=== PATIENT | male | born 1990 | race Caucasian/White ===

== ENCOUNTER 2024-07-29 14:55 | Emergency (ER) | payer MEDICAID, SELFPAY ==
[2024-07-29 15:04] VITALS: BP 126/85; PULSE 96; RESP 18; TEMP 37.2; O2SAT 99
--- NOTE | 2024-07-29 15:40 | ED.GENADULT ---
HPI - General Adult General Chief complaint: Skin/Abscess/Foreign Body Stated complaint: Left arm thinks spider bite Time Seen by Provider: 07/29/24 15:08 Source: patient, RN notes reviewed and old records reviewed Mode of arrival: ambulatory Limitations: no limitations History of Present Illness HPI narrative: 34-year-old white male to Express Care with complaint of spider bite to to left dorsal forearm for 4 days. Patient endorses history of meningitis. Patient appears in very tired, dozing off in exam room. Right sabianism excoriation agrawal and lesions across bilateral forearms. Patient denies IV drug use, nausea, vomiting, headache, fever, chills, body aches. Patient able to tolerate fluids by mouth. Respirations even and nonlabored. Patient in no acute distress. Related Data Home Medications Medication Instructions Recorded Confirmed No Home Medications 07/29/24 07/29/24 Allergies Allergy/AdvReac Type Severity Reaction Status Date / Time amoxicillin Allergy Hives Verified 07/29/24 15:17 Review of Systems Review of Systems: All systems reviewed & are unremarkable except as noted in HPI and below Constitutional: Constitutional: Reports as per HPI, Denies body ache(s), Denies chills, Denies fever(s), Denies headache(s) and Denies malaise Eyes: Eyes: Reports no additional eye complaints ENT: Reports system reviewed and no additional complaints, except as documented Cardiovascular: Cardiovascular: Reports no additional cardiovascular complaints, Denies chest pain and Denies dyspnea Respiratory: Respiratory: Reports no additional respiratory complaints, Denies cough and Denies dyspnea Musculoskeletal: Musculoskeletal: Reports no additional musculoskeletal complaints Integumentary/Breasts: Skin/Breast: Reports as per HPI, Reports new lesions, Reports erythema and Reports skin swelling Neurologic: Reports system reviewed and no additional complaints, except as documented Psychiatric: Psychiatric: Reports no additional psychiatric complaints PMFSH Comments At the time of my signature, I reviewed and agree with the nursing past medical, surgical, social, and family history. There is no relevant family history pertinent to the patient complaint. Exam Const: General: cooperative, no acute distress, poor hygiene, tired appearing, well nourished and thin Nutritional Appearance: well nourished Orientation/consciousness: patient oriented x3 Limitations: no limitations HENMT: Head: normal to inspection Ears: external ears normal Face/Nose/Sinus: Normal external nose present, Normal nares present, normal facial exam, No erythema and No edema Face and sinus: normal facial exam, no erythema and no edema Mouth: Yes Normal oral and palatal mucosa present Eyes: General: appearance normal, both eyes and all related structures Neck: Neck: normal visual inspection, full ROM and no meningeal signs Lymphatic: no lymphadenopathy noted and no lymphedema noted Chest: Chest palpation & inspection: normal inspection of the chest Resp: Effort & Inspection: normal respiratory effort and able to speak in complete sentences Cardio: Jugular venous distension: no JVD Rate: regular rate Rhythm: regular rhythm Back/Spine/Pelvis: Cervical Spine: cervical ROM normal Skin: General skin exam: crusts, erythema, excoriation, scars, lesion and wounds noted ( 3 cm for erythematous, edematous lesion to left dorsal forearm) Neuro: General: patient oriented x3, gait normal, moves all extremities and no meningeal signs Speech: normal speech Gait exam (Neuro): Normal gait present Extrem: General: full ROM and capillary refill normal Psych: Appearance: grossly normal and well kempt Course Course Emergency Course: Some parts of this dictation were generated by voice recognition software and may contain typographical and/or grammatical inaccuracies. Level of Care: Express Care Visit Vital Signs Vital signs: Vital Signs [place]
== END 2024-07-29 15:45 | disposition short-term general hospital (02) ==
PROVIDERS: Emergency Provider Nurse Practitioner Family
DX: L03.114 Cellulitis of left upper limb (principal); Z86.61 Personal history of infections of the central nervous system
CPT/HCPCS: 99212; G0463

== ENCOUNTER 2025-01-25 14:30 | Emergency (ER) | payer OTHER, SELFPAY ==
--- NOTE | 2025-01-25 14:39 | ED_ITS ---
HPI - Skin/Abscess/Foreign Bdy General Chief complaint: Skin/Abscess/Foreign Body Stated complaint: HARD BUMPS ON LEFT LEG Time Seen by Provider: 01/25/25 15:05 Source: patient and RN notes reviewed Mode of arrival: ambulatory Limitations: no limitations History of Present Illness HPI narrative: 34-year-old male presents with concern for bumps to his legs. He reports he was treated for folliculitis about a month ago and it went away but there still red spots on his legs. He denies any tender areas. He denies any drainage. MD complaint: rash Related Data Allergies Allergy/AdvReac Type Severity Reaction Status Date / Time amoxicillin Allergy Hives Verified 01/25/25 14:58 Review of Systems Review of Systems: CONSTITUTIONAL: Denies malaise, chills, sweats, or fever. CARDIOVASCULAR: Denies chest pain, palpitations, or edema. RESPIRATORY: Denies cough or dyspnea. GASTROINTESTINAL: Denies abdominal pain, nausea, vomiting SKIN: Reports hard bumps on bilateral legs and arms MUSCULOSKELETAL: Denies joint pain or myalgia. NEUROLOGIC: Denies headache. All systems reviewed & are unremarkable except as noted in HPI and below PMFSH Comments At time of signature, agree with nursing past medical, surgical, social and family history. There is no relevant family history pertinent to the presenting complaint Exam Narrative: GENERAL: Well-appearing, well-nourished, and in no acute distress. HEAD: Normocephalic, atraumatic. EYES: PERRLA, conjunctivae clear, and EOMI. ENT: Mucous membranes moist. Oropharynx without edema, erythema or lesions. NECK: Supple. No lymphadenopathy CHEST: Clear to auscultation. No respiratory distress. HEART: Regular rate and rhythm. SKIN: Warm, dry. Discrete healed papules noted to bilateral legs and arms, no active infection NEURO: Alert and oriented x3. PSYCH: Normal mood and affect Course Course Emergency Course: Patient is aware of diagnosis, understands and agrees to treatment plan. Anticipatory guidance given. Patient agrees to follow-up as directed and is aware of reasons to seek care at the emergency department. Portions of this record may have been created with voice recognition software Level of Care: Express Care Visit Vital Signs Vital signs: Reviewed. MDM - Skin/Abscess/Foreign Bdy MDM Narrative Medical decision making narrative: Does not appear at this time to be erythema multiforme, bullous, SJS, TEN; no evidence at this time to suggest RMSF, endocarditis or Lyme disease; patient looks well, nontoxic and is tolerating oral intake; no neurologic signs or symptoms; no headache, photophobia or neck pain; afebrile; appropriate for initial outpatient treatment; discussed the importance of follow-up, patient agrees; question, viral exanthema, contact dermatitis, allergic dermatitis, eczema, urticaria, folliculitis, cellulitis, impetigo. No soft palate or uvula edema, no tongue, lip edema or other mucosal involvement, no respiratory compromise, no stridor, no wheezing, no wheezing, no history of syncope, no hypotension, no nausea, vomiting, or diarrhea. Instructed patient to go to nearest ER immediately for any worsening symptoms including but not limited to: fever, spreading rash, pain, sore throat, headache, dizziness, chest pain, trouble breathing, or any symptoms concerning to the patient. Critical Care Time Critical Care Time Critical Care Time: No Discharge Plan Discharge Clinical Impression: History of folliculitis Patient Disposition: Home, Self-Care Condition: Stable Instructions: Folliculitis (ED) Additional Instructions: Use Hibiclens as directed. After that Several times a week use antibacterial soap with a loofah specially in here areas. Wash all your sheets thoroughly. Follow-up with your doctor if you have any further concerns. Patient Language: Mongolian Prescriptions: New chlorhexidine gluconate [Hibiclens] 4 % liquid 1 applic topical ONCE Qty: 236 1RF Rx Instructions: as a single dose Follow-up/Referrals: Grady,Macario Beavers MD [Primary Care Provider] - Time of Disposition: 15:11
[2025-01-25 14:50] VITALS: BP 129/88; PULSE 90; RESP 20; TEMP 36.7; O2SAT 94
--- OUTSIDE RECORDS SUMMARY | 2025-01-25 17:01 | XMS_ITS | Referral Summary ---
Author Organization [facility] Address [address] [place] [address] Care Team Providers Care County Historian Name Role Phone No, Physician Primary Care Provider [phone] Allergies Active Allergy Reactions Criticality Noted Date Comments Amoxicillin Rash Medium 07/30/2024 Medications mupirocin (BACTROBAN) 2 % ointment Apply to each nostril 2 (two) times a day 22 g 07/30/2024 Active Immunizations Immunization Administration Dates Next Due DTP 09/27/1995, 3,1991,1991,0 1991 Hep A, Pediatric 01/30/2007 Hep B, Adolescent or Pediatric 12/31/2002,2001,07/29/2002 HiB 04/06/1993,1991,1991 ,1991 IPV 09/27/1995, 3,1991,1991,0 1991 MMR 05/15/1996,04/06/1993 Meningococcal C Conjugate 07/29/2007 Td, adsorbed 03/02/2014 Tdap 04/16/2024,12/09/2016,03/13/2014 ,10/08/2006 Social History Tobacco Use Types Packs/Day Years Used Date Smoking Tobacco: Every Day Smokeless Tobacco: Never Personal Safety Answer Date Recorded Have you ever been in or are you currently in a harmful physical or emotional relationship or is someone making you feel afraid or unsafe? 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 Gender Identity Not on file Sexual Orientation Not on file Last Filed Vital Signs Vital Sign Reading Time Taken Comments Blood Pressure 114/82 07/30/2024 5:29 AM CDT Pulse 102 07/30/2024 5:29 AM CDT Temperature 37.2 C (99 F) 07/30/2024 5:29 AM CDT Respiratory Rate 18 07/30/2024 5:29 AM CDT Oxygen Saturation 100% 07/30/2024 5:29 AM CDT Inhaled Oxygen Concentration - - Weight 68 kg (150 lb) 07/30/2024 5:29 AM CDT Height 182.9 cm (6') 07/30/2024 5:29 AM CDT Body Mass Index 20.34 07/30/2024 5:29 AM CDT Plan of Treatment Not on file Insurance IDPA Care Teams County Historian Relationship Specialty Start Date End Date No, Physician PCP - General 07/12/17
--- OUTSIDE RECORDS SUMMARY | 2025-01-25 17:01 | XMS_ITS | Clinical Summary ---
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 Gender Identity Not on file Sexual Orientation Not on file Obstetrics History Last Filed Vital Signs Vital Sign Reading [...] 07/30/2024 5:29 AM CDT Plan of Treatment Health Maintenance Due Date Last Done Comments Depression Screening 1991 Hepatitis C Screening 1991 Varicella Vaccines (1 of 2 - 13+ 2-dose series) 2004 Regular Well Visit/Exam 18-64 2009 Pneumococcal vaccine <65 (1 of 2 - PCV) 2010 Influenza Vaccine (#1) 2024 DTaP/Tdap/Td Vaccine (11 - Td or Tdap) 04/16/2034 04/16/2024, 12/09/2016, 03/13/2014, Additional history exists Hepatitis B Screening Completed 12/31/2002 , 08/31/2002, 07/29/2002 HPV Vaccines Aged Out No longer eligi ble based on patient's age to complete this topic Insurance IDPA Care Teams Programming Intern Relationship Specialty Start Date End Date No, Physician PCP - General 07/12/17
--- OUTSIDE RECORDS SUMMARY | 2025-01-25 17:01 | XMS_ITS | Clinical Summary ---
Author Organization [facility] Address [address] [place] [address] Phone Care Team Providers Care Circuit Breaker Mechanic Name Role Phone Provider, None Primary Care Provider Unavailabl e Allergies Active Allergy Reactions Criticality Noted Date Comments Amoxicillin Unknown Medications HYDROcodone-zoë taminophen (NORCO) 5-325 MG Tablet Take 1-2 Tabs by mouth every 4 hours as needed for Pain. 20 Tab 0 7 Active Additional Information Patient not taking.Reported on 08/02/2022 Active Problems No known active problems Encounters Date Type Department Care Team Description 11/30/2024 10:17 AM SHELTER SUPERVISOR - 11/30/2024 12:27 PM SHELTER SUPERVISOR Emergency [facility] [address] [place] [address] Beronica Osuna, DATA BASE ADMINISTRATOR, ENGRAVER WOOD Cellulitis of lip Discharge Disposition: Discharged to home or Selfcare 11/30/2024 Travel from Last 3 Months Immunizations Immunization Administration Dates Next Due TD VACCINE 03/02/2014 TDAP Vaccine 04/16/2024,12/09/2016 Social History Tobacco Use Types Packs/Day Years Used Date Smoking Tobacco: Former Cigarettes Smokeless Tobacco: Never Alcohol Use Standard Drinks/Week Comments Yes 0 (1 standard drink = 0.6 oz pur e alcohol) Sex and Gender Information Value Date Recorded Sex Assigned at Not on file Legal Sex Male 11:23 PM CDT Gender Identity Not on file Sexual Orientation Not on file Last Filed Vital Signs Vital Sign Reading Time Taken Comments Blood Pressure 128/72 11/30/2024 12:25 PM SHELTER SUPERVISOR Pulse 74 11/30/2024 12:25 PM SHELTER SUPERVISOR Temperature 36.1 C (96.9 F) 11/30/2024 10:14 AM SHELTER SUPERVISOR Respiratory Rate 16 11/30/2024 12:25 PM SHELTER SUPERVISOR Oxygen Saturation 96% 11/30/2024 12:25 PM SHELTER SUPERVISOR Inhaled Oxygen Concentration - - Weight 67.1 kg (148 lb) 11/30/2024 10:14 AM SHELTER SUPERVISOR Height 182.9 cm (6') 11/30/2024 10:14 AM SHELTER SUPERVISOR Body Mass Index 20.07 11/30/2024 10:14 AM SHELTER SUPERVISOR Plan of Treatment Health Maintenance Due Date Last Done Comments Hepatitis C Virus (HCV) Screening 1991 Influenza Immunization (#1) 2024 SARS-COV-2 Immunization ( season) 2024 Td Immunization Every 10 Years (Adults With 1 Tdap) 04/16/2034 04/16/2024, 12/09/2016, 03/13/2014, Additional history exists Respiratory Syncytial Virus (RSV) Immunization (Adult) (1 - 1-dose 75+ series) 2066 Hepatitis B Immunization Completed 003, 08/31/2002, 07/29/2002 DTaP/Tdap/Td Immunization Discontinued 2023, 12/09/2016, 03/13/2014, Additional history exists Meningococcal Immunization (ACWY) Aged Out No longer eligible based on patient's age to complete this topic Pneumococcal Immunization Combined Aged Out No longer eligible based on patient's age to complete this topic Rotavirus Immunization Aged Out No lo nger eligible based on patient's age to complete this topic Procedures Procedure Name Priority Date/Time Associated Diagnosis Comments XR FINGER(S) MIN 2 VIEWS RT STAT 11/30/2024 11:06 AM SHELTER SUPERVISOR SPLINT APPLICATION Routine 11/30/2024 10 :33 AM SHELTER SUPERVISOR from Last 3 Months Results * XR FINGER(S) MIN 2 VIEWS RT (11/30/2024 11:06 AM SHELTER SUPERVISOR) Anatomical Region Laterality Modality UPPER EXTREMITY, Fingers N/A Digital Radiography 11/30/2024 11:3 8 AM SHELTER SUPERVISOR Impressions 11/30/2024 11:40 AM SHELTER SUPERVISOR IMPRESSION: 1. Minimally displaced comminuted fracture of the tuft of the 2nd distal phalanx. Narrative 11/30/2024 11:40 AM SHELTER SUPERVISOR EXAM DESCRIPTION: XR FINGER(S) MIN 2 VIEWS RT REASON FOR STUDY: right 2nd finger injury-laceration to right pointer finger. Patient states last night he got his finger caught in a bike sprocket. TECHNIQUE: 3 radiographic view(s) of the right 2nd digit . COMPARISON: None FINDINGS: Minimally displaced comminuted fracture of the tuft of the 2nd distal phalanx. No gross extension to the joint space. No other fracture seen. Bandage material obscures soft tissue detail. Mild soft tissue swelling. Old appearing nonunited ulnar styloid fracture. THIS IS AN ELECTRONICALLY VERIFIED FINAL REPORT 11/30/2024 11:38 AM - Electronically signed by Lorenzo Calabrese M.D. AG: ABBY Report ID: [id number] Reading Location: [id number] Procedure Note Lorenzo Calabrese MD - 11/30/2024 EXAM DESCRIPTION: XR FINGER(S) MIN 2 VIEWS RT REASON FOR STUDY: right 2nd finger injury-laceration to right pointer finger. Patient states last night he got his finger caught in a bike sprocket. TECHNIQUE: 3 radiographic view(s) of the right 2nd digit . COMPARISON: None FINDINGS: Minimally displaced comminuted fracture of the tuft of the 2nd distal phalanx. No gross extension to the joint space. No other fracture seen. Bandage material obscures soft tissue detail. Mild soft tissue swelling. Old appearing nonunited ulnar styloid fracture. THIS IS AN ELECTRONICALLY VERIFIED FINAL REPORT 11/30/2024 11:38 AM - Electronically signed by Lorenzo Calabrese M.D. AG: ABBY Report ID: [id number] Reading Location: [id number] IMPRESSION: 1. Minimally displaced comminuted fracture of the tuft of the 2nd distal phalanx. us Beronica Osuna APRN, CNP IMG DIAGNOSTIC ORDERA BLES Final Result * Splint Application (11/30/2024 10:33 AM SHELTER SUPERVISOR) Narrative Negro Curiel MD - 11/30/2024 10:33 AM SHELTER SUPERVISOR Beronica Osuna APRN, CNP 11/30/2024 11:56 AM Splint Application Performed by: Beronica Osuna APRN, CNP Authorized by: Beronica Osuna APRN, CNP Consent: Consent obtained: Verbal Consent given by: Patient Risks, benefits, and alternatives were discussed: yes Risks discussed: Discoloration, numbness, pain and swelling Alternatives discussed: No treatment, delayed treatment and referral [place] protocol: Procedure explained and questions answered to patient or proxy's satisfaction: yes Imaging studies available: yes Patient identity confirmed: Verbally with patient and arm band Pre-procedure details: Distal neurologic exam: Normal Distal perfusion: distal pulses strong and brisk capillary refill Procedure details: Location: Finger Finger location: R index finger Cast type: Finger Splint type: Finger Supplies: Aluminum splint Post-procedure details: Distal neurologic exam: Normal Distal perfusion: distal pulses strong and brisk capillary refill Procedure completion: Tolerated well, no immediate complications us Beronica Osuna APRN, CNP PROCEDURE/MINOR SURGI ISABELLE ORDERABLES Final Result from Last 3 Months Insurance MEDICAID [place] Care Teams Circuit Breaker Mechanic Relationship Specialty Start Date End Date Provider, None [place] PCP - General 08/02/22
== END 2025-01-25 15:19 | disposition home or self-care (01) ==
PROVIDERS: Emergency Provider Nurse Practitioner; PCP Internal Medicine
DX: L73.9 Follicular disorder, unspecified (principal)
CPT/HCPCS: 99213; G0463

== ENCOUNTER 2025-05-29 08:41 | Emergency (ER) | payer OTHER, SELFPAY ==
--- NOTE | 2025-05-29 09:19 | ED_ITS ---
HPI - Skin/Abscess/Foreign Bdy General Chief complaint: Skin/Abscess/Foreign Body Stated complaint: possible spider bite on nose Patient presents to Express Care with complaints of redness, swelling, fatigue, to nose. Patient reports he believes this is a spider bite. Patient does note that this comes and goes and has been happening for about a year. Patient has questions about MRSA. Denies fever, chills, body aches, headache, dizziness, or drainage from the area. Related Data Allergies Allergy/AdvReac Type Severity Reaction Status Date / Time amoxicillin Allergy Hives Verified 01/25/25 14:58 Review of Systems Constitutional: Constitutional: Reports as per HPI, Denies chills, Reports fatigue, Denies fever(s) and Denies weakness Eyes: Eyes: Reports no additional eye complaints ENT: Reports as per HPI, Denies dysphagia, Denies vertigo, Denies dizziness, Denies epistaxis, Denies nasal congestion and Denies sore throat Comments: No swelling, redness, pain to nose. Cardiovascular: Cardiovascular: Reports no additional cardiovascular complaints Respiratory: Respiratory: Reports no additional respiratory complaints Gastrointestinal: Gastrointestinal: Reports no additional gastrointestinal complaints Genitourinary: Genitourinary: Reports no additional male genitourinary complaints Musculoskeletal: Musculoskeletal: Reports no additional musculoskeletal complaints Integumentary/Breasts: Skin/Breast: Reports as per HPI, Denies breast pain, Denies breast mass, Denies pruritus, Reports erythema, Denies rash and Reports skin ulcer Neurologic: Reports system reviewed and no additional complaints, except as documented Psychiatric: Psychiatric: Reports no additional psychiatric complaints Endocrine: Endocrine: Reports no additional endocrine complaints Hematologic/Lymphatic: Hematologic/Lymphatic: Reports no additional hematologic/lymphatic complaints Allergic/Immunologic: Allergic/Immunologic: Reports no additional allergic/immunologic complaints Exam Const: General: healthy appearing, no acute distress and alert Nutritional Appearance: well nourished Orientation/consciousness: patient oriented x3 Limitations: no limitations HENMT: Face/Nose/Sinus: external nose not normal ( Diffuse erythema, ulcerations, and swelling noted) Face and sinus: abnormal facial exam and sinuses nontender Mouth: Yes Normal oral and palatal mucosa present Neck: Neck: no lymphadenopathy Resp: Effort & Inspection: normal respiratory effort Auscultation: clear to auscultation bilaterally Cardio: Rate: regular rate Rhythm: regular rhythm Heart sounds: no murmurs Skin: General skin exam: normal color Rashes: no rashes Wounds: wounds noted Other: diffuse open wounds over arms, face, and chest. Neuro: General: patient oriented x3 and moves all extremities Speech: normal speech Gait exam (Neuro): Normal gait present Extrem: General: normal to inspection, no clubbing, cyanosis or edema and no pedal edema Psych: Mental Status: mental status grossly normal Affect: normal affect Attitude: cooperative Course Course Level of Care: Express Care Visit MDM - Skin/Abscess/Foreign Bdy MDM Narrative Medical decision making narrative: Spoke with patient about prevention of MRSA and catching early infections. Discharge instructions reviewed with patient, as well as provided in writing per nursing staff. The instructions also include specific and strict return/GO TO THE ER as well as f/u information. All questions have been answered, and the patient deny any further questions with discharge and discharge plan. Differential Diagnosis Differential diagnosis: Likely abscess of skin or subcutaneous tissue, urticaria, cellulitis and impetigo Medical Records Attestation: I reviewed the patient's medical records. Discharge Plan Discharge Clinical Impression: Cellulitis Patient Disposition: Home Condition: Stable Instructions: Antibiotic Form, MRSA (Methicillin-Resistant Staphylococcus Aureus) (ED), Cellulitis (ED) Additional Instructions: Clean with soap and water only; Avoid using alcohol and peroxide. Elevate the affected area if possible Alternate Tylenol/ibuprofen for as needed for pain Acetaminophen(Tylenol) 650- 1000mg every 4-6hours with max of 4000mg/day. Nonsteroidal anti-inflammatory agent (NSAIDs-ibuprofen): 400mg every 4-6hours with max 2400mg/day Take antibiotic until it's gone. Please schedule a follow up visit with your personal physician for further evaluation and treatment within 3-5days OR if your symptoms persist, change or worsen significantly before you can contact your personal physician then please, without delay, go to the emergency department for further evaluation. Since you have had recurring infections you can use topical tea tree washes were chlorhexidine regularly for prevention of infection and flare-ups. Patient Language: Ethiopian Prescriptions: New clindamycin HCl [Cleocin HCl] 300 mg capsule 300 mg PO Q6H Qty: 40 0RF Follow-up/Referrals: Grady,Macario Beavers MD [Primary Care Provider] - Time of Disposition: 09:30
[2025-05-29 17:33] VITALS: BP 124/91; PULSE 107; RESP 16; TEMP 36.2; O2SAT 100
== END 2025-05-29 09:38 | disposition home or self-care (01) ==
PROVIDERS: Emergency Provider Nurse Practitioner Family; PCP Internal Medicine
DX: J34.0 Abscess, furuncle and carbuncle of nose (principal)
CPT/HCPCS: 99213; G0463

== ENCOUNTER 2025-09-28 18:33 | Emergency (ER) | payer OTHER, SELFPAY ==
--- OUTSIDE RECORDS SUMMARY | 2025-09-28 18:35 | XMS_ITS | Clinical Summary ---
Author Organization [facility] Address [address] [place] [address] Phone Care Team Providers Care Short Order Cook Name Role Phone Provider, None Primary Care Provider Unavailabl e Allergies Active Allergy Reactions Criticality Noted Date Comments Amoxicillin Unknown Medications HYDROcodone-zoë taminophen (NORCO) 5-325 MG Tablet Take 1-2 Tabs by mouth every 4 hours as needed for Pain. 20 Tab 0 7 Active Additional Information Patient not taking.Reported on 08/02/2022 Active Problems No known active problems Immunizations Immunization Administration Dates Next Due TD [...] Comments Blood Pressure 128/72 11/30/2024 12:25 PM CULTURAL HISTORIAN Pulse 74 11/30/2024 12:25 PM CULTURAL HISTORIAN Temperature 36.1 C (96.9 F) 11/30/2024 10:14 AM CULTURAL HISTORIAN Respiratory Rate 16 11/30/2024 12:25 PM CULTURAL HISTORIAN Oxygen Saturation 96% 11/30/2024 12:25 PM CULTURAL HISTORIAN Inhaled Oxygen Concentration - - Weight 67.1 kg (148 lb) 11/30/2024 10:14 AM CULTURAL HISTORIAN Height 182.9 cm (6') 11/30/2024 10:14 AM CULTURAL HISTORIAN Body Mass Index 20.07 11/30/2024 10:14 AM CULTURAL HISTORIAN Plan of Treatment Health Maintenance Due Date Last Done Comments Hepatitis C Virus (HCV) Screening 1991 Human Papillomavirus (HPV) Immunization (1 - 3-dose SCDM series) 2018 Influenza Immunization (#1) 2025 SARS-COV-2 Immunization ( season) 2025 Td Immunization Every 10 Years (Adults With [...] patient's age to complete this topic Insurance MEDICAID [place] Care Teams Short Order Cook Relationship Specialty Start Date End Date Provider, None [place] PCP - General 08/02/22
--- OUTSIDE RECORDS SUMMARY | 2025-09-28 18:35 | XMS_ITS | Clinical Summary ---
Author Organization [facility] Address [address] [place] [address] Care Team Providers Care Maternity Nurse Name Role Phone No, Physician Primary Care Provider [phone] Allergies Active Allergy Reactions Criticality Noted Date Comments Amoxicillin Rash Medium 07/30/2024 Medications mupirocin (BACTROBAN) 2 % ointment Apply to each nostril 2 (two) times a day 22 g 07/30/2024 Active cephalexin (KEFLEX) 500 mg capsule Take 1 capsule (500 mg total) by mouth 3 (three) times a day 21 capsule 07/16/2025 Active Encounters Date Type Department Care Team Description 07/16/2025 4:40 AM CDT - 07/16/2025 7:10 AM CDT Emergency [facility] Emergency Department [address] [place] [address] Fredy Bedoya MD Kanumuri, Raghu, MD Facial laceration, initial encounter (Primary Dx); Blurry vision, left eye Discharge Disposition: Discharge to home or self care from Last 3 Months Immunizations Immunization Administration Dates Next Due DTP 09/27/1995, 3,1991,1991,0 1991 Hep A, Pediatric 01/30/2007 Hep B, Adolescent or Pediatric 12/31/2002,2001,07/29/2002 HiB 04/06/1993,1991,1991 ,1991 IPV 09/27/1995, 3,1991,1991,0 1991 MMR 05/15/1996,04/06/1993 Meningococcal C Conjugate 07/29/2007 Td, adsorbed 03/02/2014 Tdap 07/16/2025,,12/09/2016,03/13/2014,1 12/08/2005 Social History Tobacco Use Types Packs/Day Years Used Date Smoking Tobacco: Every Day Smokeless Tobacco: Never Personal Safety Answer Date Recorded Have you ever been in or are you currently in a harmful physical or emotional relationship or is someone making you feel afraid or unsafe? 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 Gender Identity Not on file Sexual Orientation Not on file Obstetrics History Last Filed Vital Signs Vital Sign Reading Time Taken Comments Blood Pressure 124/72 07/16/2025 7:08 AM CDT Pulse 83 07/16/2025 7:08 AM CDT Temperature 36.2 C (97.1 F) 07/16/2025 12:11 AM CDT Respiratory Rate 16 07/16/2025 7:08 AM CDT Oxygen Saturation 98% 07/16/2025 7:08 AM CDT Inhaled Oxygen Concentration - - Weight 73.9 kg (163 lb) 07/16/2025 12:08 AM CDT Height 182.9 cm (6') 07/16/2025 12:08 AM CDT Body Mass Index 22.11 07/16/2025 12:08 AM CDT Plan of Treatment Health Maintenance Due Date Last Done Comments Depression Screening 1991 Hepatitis C Screening 1991 Varicella Vaccines (1 of 2 - 13+ 2-dose series) 2004 Regular Well Visit/Exam 18-64 2009 Pneumococcal vaccine <65 (1 of 2 - PCV) 2010 HPV Vaccines (1 - 3-dose SCD M series) 2018 Influenza Vaccine (#1) 2025 DTaP/Tdap/Td Vaccine (12 - T d or Tdap) 07/16/2035 07/16/2025, 04/16/2024, 12/09/2016, Additional history exists Hepatitis B Screening Completed 12/31/2002 , 08/31/2002, 07/29/2002 Procedures Procedure Name Priority Date/Time Associated Diagnosis Comments CT FACIAL BONES WO CONTRAST ED 07/16/2025 5:[address] HEAD WO CONTRAST ED 07/16/2025 5 :31 AM CDT from Last 3 Months Results * CT Facial Bones WO Contrast (07/16/2025 5:31 AM CDT) Anatomical Region Laterality Modality Head and Neck N/A Computed Tomogra phy 07/16/2025 5:37 AM CDT Narrative 07/16/2025 5:45 AM CDT EXAM DESCRIPTION: CT HEAD WO CONTRAST; CT FACIAL BONES WO CONTRAST REASON FOR STUDY: Head trauma, moderate-severe Patient was pulling nails out of a Pallet with a crowbar. That was last evening. One of the nails struck him in the face above the left eyebrow. He had loss of consciousness. Also having some bleeding from the left nostril. ; Facial trauma, blunt Patient was pulling nails out of a Pallet with a crowbar. That was last evening. One of the nails struck him in the face above the left eyebrow. He had loss of consciousness. Also having some bleeding from the left nostril. TECHNIQUE: Axial images acquired through the head and face without intravenous contrast. Coronal and sagittal reformats were performed. Images stored on PACS. Automated mA/kV exposure control was used as a dose optimization technique for this examination and patient examination was performed in strict accordance with principles of ALARA. COMPARISON: None. FINDINGS: HEAD BRAIN: No hemorrhage, edema or mass effect. No recent infarct. Normal white matter. EXTRA-AXIAL SPACES: No fluid collections. No masses. CALVARIUM: No fracture. OTHER: No other significant abnormality. FACE BONES: No fracture or bone lesion. There are extensive dental caries in multiple missing maxillary and mandibular teeth. SOFT TISSUES: No focal soft tissue swelling or inflammation seen. SINUSES: There is opacification of multiple left ethmoid air cells. There is minimal mucosal thickening seen of the maxillary sinuses bilaterally. Remaining paranasal sinuses are clear. MASTOIDS: Well-aerated. IACs symmetric, grossly normal. NASAL CAVITY: There is S-shaped nasal septal deviation. Nasal cavity is otherwise unremarkable. ORBITS: No significant abnormalities visualized. TMJ: Normal. OTHER: No other significant finding. IMPRESSION: 1. No acute intracranial abnormality. 2. No acute facial bone fracture. 3. Extensive dental caries and multiple missing maxillary and mandibular teeth. 4. Mild paranasal sinus disease. 5. S-shaped nasal septal deviation. THIS IS AN ELECTRONICALLY VERIFIED FINAL REPORT 07/16/2025 5:45 AM - Electronically signed by Stephanie Luther M.D. SN: SN Report ID: [id number] Reading Location: [id number] Procedure Note Stephanie Luther MD - 07/16/2025 EXAM DESCRIPTION: CT HEAD WO CONTRAST; CT FACIAL BONES WO CONTRAST REASON FOR STUDY: Head trauma, moderate-severe Patient was pulling nails out of a Pallet with a crowbar. That was last evening. One of the nails struck him in the face above the left eyebrow.He had loss of consciousness. Also having some bleeding from the leftnostril. ; Facial trauma, blunt Patient was pulling nails out of a Pallet with a crowbar. That was last evening. One of the nails struck him in the face above the left eyebrow.He had loss of consciousness. Also having some bleeding from the leftnostril. TECHNIQUE: Axial images acquired through the head and face withoutintravenous contrast. Coronal and sagittal reformats were performed. Images storedon PACS. Automated mA/kV exposure control was used as a dose optimization technique for this examination and patient examination was performed instrict accordance with principles of ALARA. COMPARISON: None. FINDINGS: HEAD BRAIN: No hemorrhage, edema or mass effect. No recent infarct. Normalwhite matter. EXTRA-AXIAL SPACES: No fluid collections. No masses. CALVARIUM: No fracture. OTHER: No other significant abnormality. FACE BONES: No fracture or bone lesion. There are extensive dental caries in multiple missing maxillary and mandibular teeth. SOFT TISSUES: No focal soft tissue swelling or inflammation seen. SINUSES: There is opacification of multiple left ethmoid air cells.There is minimal mucosal thickening seen of the maxillary sinuses bilaterally. Remaining paranasal sinuses are clear. MASTOIDS: Well-aerated. IACs symmetric, grossly normal. NASAL CAVITY: There is S-shaped nasal septal deviation. Nasal cavity is otherwise unremarkable. ORBITS: No significant abnormalities visualized. TMJ: Normal. OTHER: No other significant finding. IMPRESSION: 1. No acute intracranial abnormality. 2. No acute facial bone fracture. 3. Extensive dental caries and multiple missing maxillary and mandibular teeth. 4. Mild paranasal sinus disease. 5. S-shaped nasal septal deviation. THIS IS AN ELECTRONICALLY VERIFIED FINAL REPORT 07/16/2025 5:45 AM - Electronically signed by Stephanie Luther M.D. SN: SN Report ID: [id number] Reading Location: [id number] Fredy Bedoya MD IMG CT PROCEDURES Final Resu lt * CT Head WO Contrast (07/16/2025 5:31 AM CDT) Anatomical Region Laterality Modality Head and Neck N/A Computed Tomogra phy 07/16/2025 5:37 AM CDT Narrative 07/16/2025 5:45 AM CDT EXAM DESCRIPTION: CT HEAD WO CONTRAST; CT FACIAL BONES WO CONTRAST REASON FOR STUDY: Head trauma, moderate-severe Patient was pulling nails out of a Pallet with a crowbar. That was last evening. One of the nails struck him in the face above the left eyebrow. He had loss of consciousness. Also having some bleeding from the left nostril. ; Facial trauma, blunt Patient was pulling nails out of a Pallet with a crowbar. That was last evening. One of the nails struck him in the face above the left eyebrow. He had loss of consciousness. Also having some bleeding from the left nostril. TECHNIQUE: Axial images acquired through the head and face without intravenous contrast. Coronal and sagittal reformats were performed. Images stored on PACS. Automated mA/kV exposure control was used as a dose optimization technique for this examination and patient examination was performed in strict accordance with principles of ALARA. COMPARISON: None. FINDINGS: HEAD BRAIN: No hemorrhage, edema or mass effect. No recent infarct. Normal white matter. EXTRA-AXIAL SPACES: No fluid collections. No masses. CALVARIUM: No fracture. OTHER: No other significant abnormality. FACE BONES: No fracture or bone lesion. There are extensive dental caries in multiple missing maxillary and mandibular teeth. SOFT TISSUES: No focal soft tissue swelling or inflammation seen. SINUSES: There is opacification of multiple left ethmoid air cells. There is minimal mucosal thickening seen of the maxillary sinuses bilaterally. Remaining paranasal sinuses are clear. MASTOIDS: Well-aerated. IACs symmetric, grossly normal. NASAL CAVITY: There is S-shaped nasal septal deviation. Nasal cavity is otherwise unremarkable. ORBITS: No significant abnormalities visualized. TMJ: Normal. OTHER: No other significant finding. IMPRESSION: 1. No acute intracranial abnormality. 2. No acute facial bone fracture. 3. Extensive dental caries and multiple missing maxillary and mandibular teeth. 4. Mild paranasal sinus disease. 5. S-shaped nasal septal deviation. THIS IS AN ELECTRONICALLY VERIFIED FINAL REPORT 07/16/2025 5:45 AM - Electronically signed by Stephanie Luther M.D. SN: SN Report ID: [id number] Reading Location: [id number] Procedure Note Stephanie Luther MD - 07/16/2025 EXAM DESCRIPTION: CT HEAD WO CONTRAST; CT FACIAL BONES WO CONTRAST REASON FOR STUDY: Head trauma, moderate-severe Patient was pulling nails out of a Pallet with a crowbar. That was last evening. One of the nails struck him in the face above the left eyebrow.He had loss of consciousness. Also having some bleeding from the leftnostril. ; Facial trauma, blunt Patient was pulling nails out of a Pallet with a crowbar. That was last evening. One of the nails struck him in the face above the left eyebrow.He had loss of consciousness. Also having some bleeding from the leftnostril. TECHNIQUE: Axial images acquired through the head and face withoutintravenous contrast. Coronal and sagittal reformats were performed. Images storedon PACS. Automated mA/kV exposure control was used as a dose optimization technique for this examination and patient examination was performed instrict accordance with principles of ALARA. COMPARISON: None. FINDINGS: HEAD BRAIN: No hemorrhage, edema or mass effect. No recent infarct. Normalwhite matter. EXTRA-AXIAL SPACES: No fluid collections. No masses. CALVARIUM: No fracture. OTHER: No other significant abnormality. FACE BONES: No fracture or bone lesion. There are extensive dental caries in multiple missing maxillary and mandibular teeth. SOFT TISSUES: No focal soft tissue swelling or inflammation seen. SINUSES: There is opacification of multiple left ethmoid air cells.There is minimal mucosal thickening seen of the maxillary sinuses bilaterally. Remaining paranasal sinuses are clear. MASTOIDS: Well-aerated. IACs symmetric, grossly normal. NASAL CAVITY: There is S-shaped nasal septal deviation. Nasal cavity is otherwise unremarkable. ORBITS: No significant abnormalities visualized. TMJ: Normal. OTHER: No other significant finding. IMPRESSION: 1. No acute intracranial abnormality. 2. No acute facial bone fracture. 3. Extensive dental caries and multiple missing maxillary and mandibular teeth. 4. Mild paranasal sinus disease. 5. S-shaped nasal septal deviation. THIS IS AN ELECTRONICALLY VERIFIED FINAL REPORT 07/16/2025 5:45 AM - Electronically signed by Stephanie Luther M.D. SN: SN Report ID: [id number] Reading Location: [place] [id number] Fredy Bedoya MD IMG CT PROCEDURES Final Resu lt from Last 3 Months Insurance [facility] Care Teams Maternity Nurse Relationship Specialty Start Date End Date No, Physician PCP - General 07/12/17
[2025-09-28 18:38] VITALS: BP 132/94; PULSE 100; RESP 20; TEMP 37.4; O2SAT 100
--- NOTE | 2025-09-29 08:41 | ED.SKABFB ---
HPI - Skin/Abscess/Foreign Bdy General Chief complaint: Skin/Abscess/Foreign Body Stated complaint: Skin Sore Time Seen by Provider: 09/28/25 19:15 Source: patient and RN notes reviewed Mode of arrival: ambulatory Limitations: no limitations History of Present Illness HPI narrative: 35-year-old male presents Express Care complaining of wound to the bottom of his chin since yesterday. Patient said he shaved his face history with a razor since then he has developed rest swelling to the bottle of his chin. Patient denies a drainage but reports pain. Patient denies any fevers denies any chills, nausea, vomiting, diarrhea, or any other symptoms. Patient denies any history of MRSA. Related Data Allergies Allergy/AdvReac Type Severity Reaction Status Date / Time amoxicillin Allergy Hives Verified 09/28/25 18:40 Review of Systems Review of Systems: CONSTITUTIONAL: Denies fever, chills, or sweats. EYES: Denies visual changes, redness, or discharge. ENT: Denies rhinorrhea, congestion, sore throat, or otalgia. CARDIOVASCULAR: Denies chest pain, palpitations, or edema. RESPIRATORY: Denies cough or dyspnea. GASTROINTESTINAL: Denies abdominal pain, nausea, vomiting, or diarrhea. GENITOURINARY: Denies dysuria or hematuria. SKIN: Denies rash or itching. Positive for wound. MUSCULOSKELETAL: Denies back pain, joint pain, or myalgia. NEUROLOGIC: Denies headache, numbness, or weakness. PSYCHIATRIC: Denies anxiety or depression. All other systems reviewed are negative, except as documented in HPI. PMFSH Comments At the time of my signature, I reviewed and agree with the nursing past medical, surgical, social, and family history. There is no relevant family history pertinent to the patient complaint. Exam Narrative: GENERAL: This is a well-nourished, well-developed adult, in no apparent distress. They are non ill-appearing, nontoxic appearing. HEAD: normocephalic, atraumatic. EYES: Sclera clear/white. Conjunctiva normal. Vision is grossly intact. Extraocular movements intact EARS: External ears normal, Hearing grossly intact. NOSE: External nose normal THROAT: Mucous membranes moist, posterior pharynx clear, without erythema or swelling. Uvula midline. No trismus NECK: Neck supple, non-tender without lymphadenopathy, masses or thyromegaly. CARDIOVASCULAR: Regular rate and rhythm RESPIRATORY: Respiratory rate normal, respiratory effort nonlabored, no respiratory distress SKIN: Face: Bottom of chin with erythematous papule from measuring approximately 1.5 cm 1.5 cm. No induration, is tender to palpate. No fluctuance. No exudate. NEURO: awake, alert, and oriented to person, place and time. There were no obvious focal neurologic abnormalities. EXTREMITIES: No joint tenderness, effusion, or edema noted. Course Course Emergency Course: Portions of this record may have been created with voice recognition software Level of Care: Express Care Visit Vital Signs Vital signs: Vital Signs Temperature 99.4 F 09/28/25 18:38 Pulse Rate 100 09/28/25 18:38 Respiratory Rate 20 09/28/25 18:38 Blood Pressure 132/94 H 09/28/25 18:38 Pulse Oximetry 100 09/28/25 18:38 Oxygen Delivery Room Air 09/28/25 18:38 Temperature 99.4 F 09/28/25 18:38 Pulse Rate 100 09/28/25 18:38 Respiratory Rate 20 09/28/25 18:38 Blood Pressure 132/94 H 09/28/25 18:38 Pulse Oximetry 100 09/28/25 18:38 Oxygen Delivery Room Air 09/28/25 18:38 Reviewed MDM - Skin/Abscess/Foreign Bdy MDM Narrative Medical decision making narrative: Likely patient has small abscess on chin. No surrounding cellulitis. Given location and small size will try antibiotic therapy 1st prior to incision and drainage. Will prescribe doxycycline. Discussed physical exam findings. Advised supportive measures and signs/symptoms to go to the ER. Pt is appropriate for outpt treatment and f/u. Differential Diagnosis Differential diagnosis: Likely abscess of skin or subcutaneous tissue, cellulitis, contact dermatitis and other (Acne) Critical Care Time Critical Care Time Critical Care Time: No Discharge Plan Discharge Clinical Impression: Abscess of chin Patient Disposition: Home Condition: Stable Instructions: Antibiotic Form, Abscess (ED) Additional Instructions: DO NOT pick at the area. This will only make the area worse and drive infection deeper. Shower and wash with soapy water. Keep area clean and dry. Apply warm compresses to the affected area 15-20 minutes a few times a day to promote drainage. Take all the antibiotics as prescribed. You may put a non adherent dressing such as a Band-Aid to help collect drainage. Change the dressing daily. Follow up with PCP in 3-5 days Return to the ER if you develop worsening redness, swelling, pain, fevers, difficulty breathing or any serious concerns. Patient Language: Syriac Prescriptions: New doxycycline monohydrate 100 mg capsule 100 mg PO BID 7 Days Qty: 14 0RF Follow-up/Referrals: Grady,Macario Beavers MD [Primary Care Provider, Unknown] Time of Disposition: 19:35
== END 2025-09-28 19:37 | disposition home or self-care (01) ==
PROVIDERS: PCP Internal Medicine
DX: L02.01 Cutaneous abscess of face (principal); Z86.61 Personal history of infections of the central nervous system
CPT/HCPCS: 99213; G0463

== ENCOUNTER 2025-11-24 16:20 | Emergency (ER) | payer OTHER, SELFPAY ==
--- OUTSIDE RECORDS SUMMARY | 2025-11-24 16:22 | XMS_ITS | Clinical Summary ---
Author Organization [facility] Address [address] [place] [address] Phone Care Team Providers Care Supply Cataloguer Name Role Phone Provider, None Primary Care [...] Comments Blood Pressure 128/72 11/30/2024 12:25 PM HOUSEKEEPING SUPERVISOR HOTEL Pulse 74 11/30/2024 12:25 PM HOUSEKEEPING SUPERVISOR HOTEL Temperature 36.1 C (96.9 F) 11/30/2024 10:14 AM HOUSEKEEPING SUPERVISOR HOTEL Respiratory Rate 16 11/30/2024 12:25 PM HOUSEKEEPING SUPERVISOR HOTEL Oxygen Saturation 96% 11/30/2024 12:25 PM HOUSEKEEPING SUPERVISOR HOTEL Inhaled Oxygen Concentration - - Weight 67.1 kg (148 lb) 11/30/2024 10:14 AM HOUSEKEEPING SUPERVISOR HOTEL Height 182.9 cm (6') 11/30/2024 10:14 AM HOUSEKEEPING SUPERVISOR HOTEL Body Mass Index 20.07 11/30/2024 10:14 AM HOUSEKEEPING SUPERVISOR HOTEL Plan of Treatment Health Maintenance Due Date Last Done Comments Hepatitis C Virus (HCV) Screening 1991 Varicella Immunization (1 of 2 - 13+ 2-dose series) 2004 Influenza Immunization (#1) 2025 SARS-COV-2 Immunization ( season) 2025 Td Immunization Every 10 Years (Adults With 1 Tdap) 04/16/2034 04/16/2024, 12/09/2016, 03/13/2014, Additional history exists Respiratory Syncytial Virus (RSV) Immunization (Adult) (1 - 1-dose 75+ series) 2066 Hepatitis B Immunization Completed 003, 08/31/2002, 07/29/2002 DTaP/Tdap/Td Immunization Discontinued 2023, 12/09/2016, 03/13/2014, Additional history exists Human Papillomavirus (HPV) Immunization (No Doses Required) Completed Meningococcal Immunization (ACWY) Aged Out No longer eligible based on patient's age to complete this topic Pneumococcal Immunization Combined Aged Out No longer eligible based on patient's age to complete this topic Rotavirus Immunization Aged Out No lo nger eligible based on patient's age to complete this topic Insurance [place]ID [place] Care Teams Supply Cataloguer Relationship Specialty Start Date End Date Provider, None [place] PCP - General 08/02/22
[2025-11-24 16:28] VITALS: BP 125/91; PULSE 100; RESP 20; TEMP 37.2; O2SAT 100
--- NOTE | 2025-11-24 16:39 | ED_ITS ---
HPI - Dental/Oral General Chief complaint: Dental/Oral Stated complaint: sinus infection Time Seen by Provider: 11/24/25 16:32 Source: patient, RN notes reviewed and old records reviewed Mode of arrival: ambulatory Limitations: no limitations History of Present Illness HPI Narrative: 35 year old male presents to [facility] with complaints of right upper dental pain which started yesterday is unable to identify which tooth, has multiple caries with missing and broken teeth. Kathyaeitn also reports that the right side of his nose feels swollen like there is a sore in it. Patient has not taken any OTC medications for his discomfort. Patient reports that he does vape and does admit to Methamphetamine use. MD Complaint: tooth pain Location: Tooth # (right upper teeth) Onset (ago): day(s) (reports yesterday) Severity scale (1-10): 8 Treatment prior to arrival: none Related Data Allergies Allergy/AdvReac Type Severity Reaction Status Date / Time amoxicillin Allergy Hives Verified 11/24/25 16:21 Review of Systems Review of Systems: CONSTITUTIONAL: Denies fever, chills, or sweats. ENT: Denies rhinorrhea, congestion, sore throat, or otalgia. Reports dental pain to right upper molars unable to identify which several broken , some missing and caries noted, no trismus or Reg angina. CARDIOVASCULAR: Denies chest pain, palpitations, or edema. RESPIRATORY: Denies cough or dyspnea. SKIN: Denies rash or itching.reports soreness to right side of nose, several sores on face noted in various stages of healing MUSCULOSKELETAL: Denies myalgia. NEUROLOGIC: Denies headache All systems reviewed & are unremarkable except as noted in HPI and below [facility] Past Medical History Medical History (Updated 11/26/25 @ 20:49 by Arlette Messina APRN) History of folliculitis Cellulitis Right clavicle fracture Bacterial meningitis age 11 Social History Social History Smoking status: Current every day smoker Tobacco type: e-cigarettes/vaping Alcohol intake: current Alcohol use details: social Substance use type: marijuana and methamphetamine Gender identity (if verbalized by the patient): Male Comments At time of signature, agree with nursing past medical, surgical, social and family history. There is no relevant family history pertinent to the presenting complaint Exam Narrative: GENERAL: Well-appearing, well-nourished,unkept appearance and in no acute di stress. HEAD: Normocephalic, atraumatic. EYES: PERRLA and EOMI. ENT: Nares clear, no rhinorrhea or epistaxis. Mucous membranes moist. Missing teeth, broken teeth, caries with pain to right upper molar region with broken missing and caries unable to pinpoint which tooth, no facial swelling or any trismus or Reg angina. reports pain to side of nose with patient having sores in various stages of healing on face.No lesion noted on nose denies any nasal drainage or bleeding from nares. NECK: Supple.no lymphadenopathy CHEST: Clear to auscultation. No respiratory distress. HEART: Regular rate and rhythm. No murmur heard. Normal peripheral pulses. SKIN: Warm, dry, no rash. scattered sores in various stages of healing on face NEURO: No focal deficits. Alert and oriented x3. Course Course Level of Care: Express Care Visit Vital Signs Vital signs: Vital Signs Temperature 37.2 C 11/24/25 16:28 Pulse Rate 100 11/24/25 16:28 Respiratory Rate 20 11/24/25 16:28 Blood Pressure 125/91 H 11/24/25 16:28 Pulse Oximetry 100 11/24/25 16:28 Oxygen Delivery Room Air 11/24/25 16:28 Temperature 37.2 C 11/24/25 16:28 Pulse Rate 100 11/24/25 16:28 Respiratory Rate 20 11/24/25 16:28 Blood Pressure 125/91 H 11/24/25 16:28 Pulse Oximetry 100 11/24/25 16:28 Oxygen Delivery Room Air 11/24/25 16:28 reviewed MDM MDM Narrative Medical decision making narrative: 35 year old male with upper right dental pain with dental caries, broken off and missing teeth unable to identify exact tooth. Patient also complains of right side of nose feeling swollen and irritated also with no obvious lesions. Patients has multiple lesions on face in various stages of healing.Advised supportive measures and signs/symptoms to go to the ER. Pt is appropriate for outpt treatment and f/u. Differential Diagnosis Differential Diagnosis: Differential diagnostic considerations for dental issues include gingival abscess, dental caries, toothache, dental abscess, fracture of tooth, aphthous ulcer, TMJ. Differential diagnostic considerations for skin/abscess/foreign body issues include abscess of skin or subcutaneous tissue, viral exanthem, dermatophytosis, urticaria, herpes zoster, allergic reaction to drug, cellulitis, eczema, insect bites, impetigo, contact dermatitis, vasculitis. Critical Care Time Critical Care Time Critical Care Time: No Discharge Plan Discharge Clinical Impression: Dental abscess, Nose pain Patient Disposition: Home Condition: Stable Instructions: Antibiotic Form, Dental Abscess (ED) Additional Instructions: Avoid temperature extremes May apply heat or ice to the face Gentle brushing and flossing Antibiotic as directed Tylenol for lesser pain Use ibuprofen regularly Follow-up with the dentist as soon as possible--see the list provided mupirocin ointment use to nasal cavity twice daily If your symptoms persist, change or worsen significantly before you can contact your personal physician then please, without delay, go to the emergency departme nt for further evaluation. Follow-up with PCP in 7-10 days or sooner if needed Follow up with PCP soon in regards to your blood pressure which is elevated above threshold for referral. Blood pressure above 120/80 may indicate pre- hypertension. Patient Language: Czech Prescriptions: New clindamycin HCl [Cleocin HCl] 300 mg capsule 300 mg PO Q8H Qty: 30 0RF mupirocin [Centany] 2 % ointment 1 applic topical BID Qty: 22 0RF Follow-up/Referrals: Grady,Macario Beavers MD [Primary Care Provider, Unknown] Stand Alone Forms: Work/School Release IP Time of Disposition: 16:47 Quality [place] Coma Scale Eyes: Open Verbal: Oriented and Alert Motor: Follows Commands [place] Coma Total Score: 15
== END 2025-11-24 16:53 | disposition home or self-care (01) ==
PROVIDERS: Emergency Provider Registered Nurse; PCP Internal Medicine
DX: K04.7 Periapical abscess without sinus (principal); J34.89 Other specified disorders of nose and nasal sinuses; F17.290 Nicotine dependence, other tobacco product, uncomplicated; F12.90 Cannabis use, unspecified, uncomplicated; F15.90 Other stimulant use, unspecified, uncomplicated
CPT/HCPCS: 99213; G0463